=== PATIENT | male | born 1975 | race Caucasian/White ===

== ENCOUNTER 2021-02-25 08:06 | Inpatient (IN) | payer BC, OTHER ==
[~2021-02-25] VITALS: Ht 188 cm; Wt 108.0 kg
[2021-02-25] MEDS ORDERED: CEFEPIME 1 GM in IV D5W 50 ML IV ONE (09:00)
[2021-02-25] MEDS ORDERED: VANCOMYCIN 1 GM in IV D5W 250 ML IV ONE (09:00)
[2021-02-25 09:37] LABS: BASOPHILS # (AUTO) 0.1 K/uL (0.0-0.2); BASOPHILS % (AUTO) 0.6 % (0.0-2.0); EOSINOPHILS % (AUTO) 0.2 % (0.0-6.0); HEMATOCRIT 43 % (39-51); LYMPHOCYTES # (AUTO) 2.1 K/uL (0.8-4.8); LYMPHOCYTES % (AUTO) 10.9 % (20.0-44.0); MEAN CORPUSCULAR HGB CONC 33 g/dl (31.0-36.0); MEAN CORPUSCULAR VOLUME 98 fL (80-96); MONOCYTES # (AUTO) 1.9 K/uL (0.1-1.30); MONOCYTES % (AUTO) 9.9 % (2.0-12.0); NEUTROPHILS # (AUTO) 15.2 K/uL (1.8-8.9); NEUTROPHILS % (AUTO) 78.4 % (43.0-81.0); PLATELET COUNT (AUTO) 154 K/uL (150-450); RED BLOOD CELL COUNT(AUTO) 4.36 MIL/uL (4.5-6.0); WHITE BLOOD COUNT (AUTO) 19.4 K/uL (4.3-11.0)
[2021-02-25 10:17] LABS: CALCIUM, SERUM 8.1 mg/dL (8.5-10.1); CARBON DIOXIDE 19 mmol/L (21-32); CHLORIDE 93 mmol/L (98-107); CREATININE 0.9 mg/dL (0.6-1.3); GLUCOSE 130 mg/dL (74-106); POTASSIUM 4.3 mmol/L (3.5-5.1); SODIUM SERUM 129 mmol/L (136-145); UREA NITROGEN, BLOOD 11 mg/dL (7-18)
[2021-02-25 10:20] LABS: D-DIMER 15.06 mg/L(FEU (0.17-0.50)
[2021-02-25] MEDS ORDERED: ALPR0.5T8 PO (10:36)
[2021-02-25] MEDS ORDERED: IV NS 0.9% 1,000 ML IV ONE (11:00)
[2021-02-25 11:04] LABS: ALANINE AMINOTRANSFERASE 98 U/L (12-78); ALBUMIN 2.4 g/dL (3.4-5.0); ALKALINE PHOSPHATASE 198 U/L (46-116); ASPARTATE AMINOTRANSFERASE 171 U/L (15-37); BILIRUBIN,DIRECT 3.4 mg/dL (0.0-0.2); BILIRUBIN,TOTAL 4.7 mg/dL (0.2-1.0); TOTAL PROTEIN, SERUM 6.9 g/dL (6.4-8.2)
[2021-02-25] MEDS ORDERED: Z GUARD REMEDY 4 OZ OINT TP PRN (11:30)
[2021-02-25] MEDS ORDERED: MAGNESIUM HYDROXIDE 30 ML UDC PO PRN (11:30)
[2021-02-25] MEDS ORDERED: ZOLPIDEM TARTRATE 5 MG TABLET PO PRN (11:30)
[2021-02-25] MEDS ORDERED: ONDANSETRON HCL/PF 4 MG/2 ML VIAL IVP PRN (11:30)
[2021-02-25] MEDS ORDERED: ACETAMINOPHEN 325 MG TABLET PO PRN (11:30)
[2021-02-25] MEDS ORDERED: PANTOPRAZOLE 40 MG TABLET.DR PO ONE (13:52)
[2021-02-25] MEDS: PANTOPRAZOLE 40 MG TABLET.DR PO SCH (13:55)
[2021-02-25 14:54] LABS: BILIRUBIN,URINE SMALL (NEGATIVE); COLOR,URINE DARK YELLOW (YELLOW); LEUKOCYTE ESTERASE ,URINE NEGATIVE (NEGATIVE); NITRITE, URINE NEGATIVE (NEGATIVE); PROTEIN,URINE 30 mg/dl (NEGATIVE); UGLUCOSE NEGATIVE (NEGATIVE); UROBILINOGEN,URINE 0.2 EU/dL (0.2)
[2021-02-25 15:41] LABS: BACTERIA,URINE Many /HPF (None Seen); SQUAMOUS EPITHELIAL CELL,UR Rare /HPF (None Seen)
[2021-02-25] MEDS ORDERED: IOHEXOL-300 100 ML VIAL IV ONE (16:01)
[2021-02-25] MEDS ORDERED: IV NS 0.9% 250 ML IV ONE (16:01)
[2021-02-25 20:10] VITALS: BP 140/89
[2021-02-25] MEDS: LORAZEPAM 1 MG TABLET PO PRN (20:53)
[2021-02-25] MEDS: CEFEPIME 1 GM in IV D5W 50 ML IV SCH (21:52)
[2021-02-26 00:40] VITALS: BP_SYST 142; BP_SYST 156; BP_DIAS 94; BP_DIAS 96
[2021-02-26] MEDS: TEMAZEPAM 15 MG CAPSULE PO PRN (02:19)
[2021-02-26] MEDS: HYDROCODONE/APAP 5/325MG TABLET PO PRN (03:53)
[2021-02-26] MEDS: IV NS 0.9% 1,000 ML IV PRN ×2 (04:00→21:30)
[2021-02-26 04:40] VITALS: BP 140/85
[2021-02-26] MEDS: LORAZEPAM 1 MG TABLET PO PRN (04:58)
[2021-02-26 07:04] LABS: BASOPHILS # (AUTO) 0.2 K/uL (0.0-0.2); BASOPHILS % (AUTO) 0.8 % (0.0-2.0); EOSINOPHILS % (AUTO) 0.1 % (0.0-6.0); HEMATOCRIT 40 % (39-51); HEMOGLOBIN 13.1 g/dL (13.5-17.5); LYMPHOCYTES # (AUTO) 1.4 K/uL (0.8-4.8); LYMPHOCYTES % (AUTO) 7.9 % (20.0-44.0); MEAN CORPUSCULAR HGB CONC 33 g/dl (31.0-36.0); MEAN CORPUSCULAR VOLUME 97 fL (80-96); MONOCYTES # (AUTO) 1.6 K/uL (0.1-1.30); MONOCYTES % (AUTO) 8.9 % (2.0-12.0); NEUTROPHILS % (AUTO) 82.3 % (43.0-81.0); PLATELET COUNT (AUTO) 107 K/uL (150-450); RED BLOOD CELL COUNT(AUTO) 4.07 MIL/uL (4.5-6.0); WHITE BLOOD COUNT (AUTO) 18.2 K/uL (4.3-11.0)
[2021-02-26 08:00] VITALS: BP 140/83
[2021-02-26 08:07] LABS: CALCIUM, SERUM 8.3 mg/dL (8.5-10.1); CREATININE 0.8 mg/dL (0.6-1.3); MAGNESIUM 2.2 mg/dL (1.8-2.4); PHOSPHORUS 3.4 mg/dL (2.5-4.9); POTASSIUM 5.2 mmol/L (3.5-5.1)
[2021-02-26] MEDS: PANTOPRAZOLE 40 MG TABLET.DR PO SCH (08:09)
[2021-02-26] MEDS: CEFEPIME 1 GM in IV D5W 50 ML IV SCH ×2 (08:09→21:22)
[2021-02-26 08:17] LABS: THYROID STIMULATING HORMONE 4.847 uIU/mL (0.358-3.74)
[2021-02-26] MEDS: HYDROCODONE/APAP 10/325MG TABLET PO PRN ×2 (11:50→17:13)
[2021-02-26] MEDS: CHLORDIAZEPOXIDE HCL 25 MG CAPSULE PO PRN ×2 (12:24→20:35)
[2021-02-26] MEDS: THIAMINE HCL 100 MG TABLET PO SCH (12:25)
[2021-02-26] MEDS ORDERED: SODIUM POLYSTYRENE SULFONATE 15 G/60 ML BOTTLE PO ONE (12:30)
[2021-02-26 13:05] LABS: FERRITIN 685 ng/mL (8-388)
[2021-02-26 15:35] LABS: IRON, SERUM 60 ug/dl (50-175); TOTAL IRON BINDING CAPACITY 382 ug/dl (250-450)
[2021-02-26 16:00] VITALS: BP 155/85
[2021-02-26 20:00] VITALS: BP 159/98
[2021-02-27 00:05] VITALS: BP 151/98
[2021-02-27 07:27] LABS: BASOPHILS # (AUTO) 0.1 K/uL (0.0-0.2); BASOPHILS % (AUTO) 0.4 % (0.0-2.0); EOSINOPHILS % (AUTO) 0.8 % (0.0-6.0); HEMATOCRIT 39 % (39-51); HEMOGLOBIN 12.9 g/dL (13.5-17.5); LYMPHOCYTES # (AUTO) 1.5 K/uL (0.8-4.8); LYMPHOCYTES % (AUTO) 9.7 % (20.0-44.0); MEAN CORPUSCULAR HGB CONC 33 g/dl (31.0-36.0); MEAN CORPUSCULAR VOLUME 98 fL (80-96); MONOCYTES % (AUTO) 12.8 % (2.0-12.0); NEUTROPHILS # (AUTO) 11.9 K/uL (1.8-8.9); NEUTROPHILS % (AUTO) 76.3 % (43.0-81.0); PLATELET COUNT (AUTO) 98 K/uL (150-450); RED BLOOD CELL COUNT(AUTO) 3.97 MIL/uL (4.5-6.0); WHITE BLOOD COUNT (AUTO) 15.6 K/uL (4.3-11.0)
[2021-02-27 08:00] VITALS: BP 134/94
[2021-02-27] MEDS: THIAMINE HCL 100 MG TABLET PO SCH (08:45)
[2021-02-27] MEDS: CHLORDIAZEPOXIDE HCL 25 MG CAPSULE PO PRN ×2 (08:45→15:06)
[2021-02-27] MEDS: CEFEPIME 1 GM in IV D5W 50 ML IV SCH ×2 (08:45→21:19)
[2021-02-27] MEDS: PANTOPRAZOLE 40 MG TABLET.DR PO SCH (08:45)
[2021-02-27] MEDS: HYDROCODONE/APAP 10/325MG TABLET PO PRN (08:46)
[2021-02-27 16:00] VITALS: BP 145/93
[2021-02-27] MEDS: HYDROCODONE/APAP 5/325MG TABLET PO PRN (17:39)
[2021-02-27 20:00] VITALS: BP 149/98
[2021-02-28 00:36] LABS: CREATININE 0.9 mg/dL (0.6-1.3); POTASSIUM 4.7 mmol/L (3.5-5.1)
[2021-02-28 02:04] VITALS: BP 149/98
[2021-02-28] MEDS: CHLORDIAZEPOXIDE HCL 25 MG CAPSULE PO PRN ×2 (04:47→17:36)
[2021-02-28 06:49] LABS: BASOPHILS # (AUTO) 0.1 K/uL (0.0-0.2); BASOPHILS % (AUTO) 0.6 % (0.0-2.0); EOSINOPHILS % (AUTO) 1.3 % (0.0-6.0); HEMATOCRIT 39 % (39-51); HEMOGLOBIN 12.8 g/dL (13.5-17.5); LYMPHOCYTES # (AUTO) 1.7 K/uL (0.8-4.8); LYMPHOCYTES % (AUTO) 11.8 % (20.0-44.0); MEAN CORPUSCULAR HGB CONC 33 g/dl (31.0-36.0); MEAN CORPUSCULAR VOLUME 98 fL (80-96); MONOCYTES # (AUTO) 1.9 K/uL (0.1-1.30); MONOCYTES % (AUTO) 13.5 % (2.0-12.0); NEUTROPHILS # (AUTO) 10.2 K/uL (1.8-8.9); NEUTROPHILS % (AUTO) 72.8 % (43.0-81.0); PLATELET COUNT (AUTO) 99 K/uL (150-450); RED BLOOD CELL COUNT(AUTO) 3.96 MIL/uL (4.5-6.0); WHITE BLOOD COUNT (AUTO) 14.1 K/uL (4.3-11.0)
[2021-02-28 07:28] LABS: CREATININE 0.9 mg/dL (0.6-1.3); POTASSIUM 3.6 mmol/L (3.5-5.1)
[2021-02-28] MEDS: PANTOPRAZOLE 40 MG TABLET.DR PO SCH (07:54)
[2021-02-28] MEDS: HYDROCODONE/APAP 10/325MG TABLET PO PRN (07:55)
[2021-02-28 09:07] LABS: IMMUNOGLOBULIN G, SERUM 1458 mg/dL (603-1613); IMMUNOGLOBULIN M, SERUM 155 mg/dL (20-172)
[2021-02-28] MEDS: CEFEPIME 1 GM in IV D5W 50 ML IV SCH (09:34)
[2021-02-28] MEDS: THIAMINE HCL 100 MG TABLET PO SCH (09:41)
[2021-02-28 09:42] LABS: D-DIMER 11.48 mg/L(FEU (0.17-0.50)
[2021-02-28] MEDS: GUAIFENESIN/CODEINE 10 ML UDC PO PRN (09:55)
[2021-02-28 10:07] LABS: *ANA ANTI-CENTROMERE B AB <0.2 AI (0.0-0.9); *ANA ANTI-DNA(DS) AB, QN 2 IU/mL (0-9); *ANA ANTI-JO-1 <0.2 AI (0.0-0.9); *ANA ANTICHROMATIN ANTIBODY <0.2 AI (0.0-0.9); *ANA RNP ANTIBODIES 0.5 AI (0.0-0.9); *ANA SJOGREN'S ANTI-SS-A <0.2 AI (0.0-0.9); *ANA SJOGREN'S ANTI-SS-B 0.3 AI (0.0-0.9); *ANAANTI-SCLERODERMA-70 AB 0.2 AI (0.0-0.9); *ANASMITH AB <0.2 AI (0.0-0.9)
[2021-02-28 10:26] VITALS: BP 151/88
[2021-02-28 12:07] LABS: IMMUNOGLOBULIN A, SERUM 834 mg/dL (90-386)
[2021-02-28] MEDS: CEFEPIME 2 GM in IV D5W 100 ML IV SCH ×2 (12:34→21:02)
[2021-02-28] MEDS: MORPHINE SULFATE INJ 4 MG/ML DISP.SYRIN IV PRN ×2 (12:37→21:00)
[2021-02-28 13:06] LABS: *SPE A/G RATIO 0.5 (0.7-1.7); *SPE ALPHA-1-GLOBULIN 0.3 g/dL (0.0-0.4); *SPE ALPHA-2-GLOBULIN 0.5 g/dL (0.4-1.0); *SPE BETA GLOBULIN 1.4 g/dL (0.7-1.3); *SPE M-SPIKE Not Observed g/dL (Not Observed)
[2021-02-28 20:00] VITALS: BP 129/94
[2021-03-01] VITALS (10 sets, daily range): BP systolic 118–147; BP diastolic 61–87
[2021-03-01] MEDS: MORPHINE SULFATE INJ 4 MG/ML DISP.SYRIN IV PRN ×3 (02:29→20:17)
[2021-03-01] MEDS: CEFEPIME 2 GM in IV D5W 100 ML IV SCH ×2 (04:01→13:33)
[2021-03-01] MEDS: PANTOPRAZOLE 40 MG TABLET.DR PO SCH (09:57)
[2021-03-01] MEDS: THIAMINE HCL 100 MG TABLET PO SCH (09:57)
[2021-03-01] MEDS ORDERED: PHYTONADIONE INJ 10 MG/1 ML AMPUL SQ SCH (11:00)
[2021-03-01] MEDS: CHLORDIAZEPOXIDE HCL 25 MG CAPSULE PO PRN (14:33)
[2021-03-01] MEDS: ACETAMINOPHEN 325 MG TABLET PO PRN (23:24)
[2021-03-02] MEDS: GUAIFENESIN/CODEINE 10 ML UDC PO PRN ×2 (00:09→13:21)
[2021-03-02 00:15] VITALS: BP 127/94
[2021-03-02] MEDS: CEFEPIME 2 GM in IV D5W 100 ML IV SCH ×4 (00:15→21:19)
[2021-03-02] MEDS: CHLORDIAZEPOXIDE HCL 25 MG CAPSULE PO PRN ×2 (04:40→15:32)
[2021-03-02 08:00] VITALS: BP 142/90
[2021-03-02] MEDS: THIAMINE HCL 100 MG TABLET PO SCH (08:34)
[2021-03-02] MEDS: PANTOPRAZOLE 40 MG TABLET.DR PO SCH (08:34)
[2021-03-02 16:00] VITALS: BP 150/74
[2021-03-02] MEDS ORDERED: diphenhydrAMINE HCL 50 MG/ML VIAL IV ONE (18:30)
[2021-03-02] MEDS ORDERED: ACETAMINOPHEN 325 MG TABLET PO ONE (18:30)
[2021-03-02 20:00] VITALS: BP 130/74
[2021-03-02] MEDS: MORPHINE SULFATE INJ 4 MG/ML DISP.SYRIN IV PRN (21:20)
[2021-03-03] VITALS (7 sets, daily range): BP systolic 125–147; BP diastolic 76–84
[2021-03-03] MEDS: CEFEPIME 2 GM in IV D5W 100 ML IV SCH ×3 (05:13→20:30)
[2021-03-03] MEDS: CHLORDIAZEPOXIDE HCL 25 MG CAPSULE PO PRN (05:38)
[2021-03-03 07:56] LABS: BASOPHILS # (AUTO) 0.1 K/uL (0.0-0.2); BASOPHILS % (AUTO) 0.6 % (0.0-2.0); EOSINOPHILS % (AUTO) 1.8 % (0.0-6.0); HEMATOCRIT 36 % (39-51); HEMOGLOBIN 12.3 g/dL (13.5-17.5); LYMPHOCYTES # (AUTO) 1.4 K/uL (0.8-4.8); LYMPHOCYTES % (AUTO) 9.5 % (20.0-44.0); MEAN CORPUSCULAR HGB CONC 34 g/dl (31.0-36.0); MEAN CORPUSCULAR VOLUME 97 fL (80-96); NEUTROPHILS # (AUTO) 10.6 K/uL (1.8-8.9); NEUTROPHILS % (AUTO) 74.1 % (43.0-81.0); PLATELET COUNT (AUTO) 99 K/uL (150-450); RED BLOOD CELL COUNT(AUTO) 3.74 MIL/uL (4.5-6.0); WHITE BLOOD COUNT (AUTO) 14.4 K/uL (4.3-11.0)
[2021-03-03 08:07] LABS: CALCIUM, SERUM 7.9 mg/dL (8.5-10.1); CREATININE 0.8 mg/dL (0.6-1.3); POTASSIUM 3.3 mmol/L (3.5-5.1)
[2021-03-03] MEDS: PANTOPRAZOLE 40 MG TABLET.DR PO SCH (08:18)
[2021-03-03] MEDS: THIAMINE HCL 100 MG TABLET PO SCH (08:18)
[2021-03-03] MEDS: MORPHINE SULFATE INJ 4 MG/ML DISP.SYRIN IV PRN (08:19)
[2021-03-03] MEDS ORDERED: POTASSIUM CHLORIDE 20 MEQ TAB.PRT.SR PO SCH (10:30)
[2021-03-03] MEDS: GUAIFENESIN/CODEINE 10 ML UDC PO PRN (11:25)
[2021-03-04] MEDS: CEFEPIME 2 GM in IV D5W 100 ML IV SCH ×2 (05:25→13:45)
[2021-03-04] MEDS: CHLORDIAZEPOXIDE HCL 25 MG CAPSULE PO PRN ×3 (06:15→23:55)
[2021-03-04] MEDS: MORPHINE SULFATE INJ 4 MG/ML DISP.SYRIN IV PRN ×3 (06:15→20:04)
[2021-03-04 08:00] VITALS: BP 140/71
[2021-03-04 08:11] LABS: CALCIUM, SERUM 7.6 mg/dL (8.5-10.1); CREATININE 0.7 mg/dL (0.6-1.3); POTASSIUM 3.5 mmol/L (3.5-5.1)
[2021-03-04] MEDS: THIAMINE HCL 100 MG TABLET PO SCH (09:07)
[2021-03-04] MEDS: PANTOPRAZOLE 40 MG TABLET.DR PO SCH (09:07)
[2021-03-04 16:00] VITALS: BP 143/61
[2021-03-04] MEDS: BENZONATATE 100 MG CAPSULE PO SCH ×2 (17:53→20:04)
[2021-03-04 20:00] VITALS: BP 123/71
[2021-03-05] MEDS: BENZONATATE 100 MG CAPSULE PO SCH ×3 (05:00→21:19)
[2021-03-05] MEDS: MORPHINE SULFATE INJ 4 MG/ML DISP.SYRIN IV PRN ×3 (06:47→18:13)
[2021-03-05 06:55] LABS: BASOPHILS # (AUTO) 0.1 K/uL (0.0-0.2); BASOPHILS % (AUTO) 0.9 % (0.0-2.0); HEMATOCRIT 35 % (39-51); HEMOGLOBIN 11.8 g/dL (13.5-17.5); LYMPHOCYTES # (AUTO) 1.4 K/uL (0.8-4.8); LYMPHOCYTES % (AUTO) 12.4 % (20.0-44.0); MEAN CORPUSCULAR HGB CONC 33 g/dl (31.0-36.0); MEAN CORPUSCULAR VOLUME 98 fL (80-96); MONOCYTES # (AUTO) 1.5 K/uL (0.1-1.30); MONOCYTES % (AUTO) 13.3 % (2.0-12.0); NEUTROPHILS # (AUTO) 8.2 K/uL (1.8-8.9); NEUTROPHILS % (AUTO) 71.4 % (43.0-81.0); PLATELET COUNT (AUTO) 108 K/uL (150-450); RED BLOOD CELL COUNT(AUTO) 3.61 MIL/uL (4.5-6.0); WHITE BLOOD COUNT (AUTO) 11.5 K/uL (4.3-11.0)
[2021-03-05 07:28] LABS: ALBUMIN 1.7 g/dL (3.4-5.0); BILIRUBIN,DIRECT 3.1 mg/dL (0.0-0.2); BILIRUBIN,TOTAL 4.6 mg/dL (0.2-1.0); TOTAL PROTEIN, SERUM 5.6 g/dL (6.4-8.2)
[2021-03-05 08:19] VITALS: BP 141/80
[2021-03-05] MEDS: THIAMINE HCL 100 MG TABLET PO SCH (08:39)
[2021-03-05] MEDS: PANTOPRAZOLE 40 MG TABLET.DR PO SCH (08:39)
[2021-03-05 16:00] VITALS: BP 129/70
[2021-03-05] MEDS: CHLORDIAZEPOXIDE HCL 25 MG CAPSULE PO PRN (18:13)
[2021-03-05 20:00] VITALS: BP 120/65
[2021-03-05 23:28] VITALS: BP 120/65
[2021-03-06] VITALS (32 sets, daily range): BP systolic 98–130; BP diastolic 59–83
[2021-03-06] MEDS: BENZONATATE 100 MG CAPSULE PO SCH ×3 (05:05→20:38)
[2021-03-06] MEDS: MORPHINE SULFATE INJ 4 MG/ML DISP.SYRIN IV PRN (05:48)
[2021-03-06 07:07] LABS: ALBUMIN 1.8 g/dL (3.4-5.0); BILIRUBIN,DIRECT 3.5 mg/dL (0.0-0.2); BILIRUBIN,TOTAL 5.5 mg/dL (0.2-1.0); CREATININE 0.8 mg/dL (0.6-1.3); POTASSIUM 3.6 mmol/L (3.5-5.1); TOTAL PROTEIN, SERUM 6.3 g/dL (6.4-8.2)
[2021-03-06 07:09] LABS: BASOPHILS # (AUTO) 0.1 K/uL (0.0-0.2); BASOPHILS % (AUTO) 0.9 % (0.0-2.0); EOSINOPHILS % (AUTO) 1.2 % (0.0-6.0); HEMATOCRIT 38 % (39-51); HEMOGLOBIN 12.8 g/dL (13.5-17.5); LYMPHOCYTES # (AUTO) 1.8 K/uL (0.8-4.8); LYMPHOCYTES % (AUTO) 12.1 % (20.0-44.0); MEAN CORPUSCULAR HGB CONC 34 g/dl (31.0-36.0); MEAN CORPUSCULAR VOLUME 97 fL (80-96); MONOCYTES # (AUTO) 1.8 K/uL (0.1-1.30); MONOCYTES % (AUTO) 11.6 % (2.0-12.0); NEUTROPHILS # (AUTO) 11.4 K/uL (1.8-8.9); NEUTROPHILS % (AUTO) 74.2 % (43.0-81.0); PLATELET COUNT (AUTO) 153 K/uL (150-450); RED BLOOD CELL COUNT(AUTO) 3.96 MIL/uL (4.5-6.0); WHITE BLOOD COUNT (AUTO) 15.3 K/uL (4.3-11.0)
[2021-03-06] MEDS: PANTOPRAZOLE 40 MG TABLET.DR PO SCH (08:04)
[2021-03-06] MEDS: THIAMINE HCL 100 MG TABLET PO SCH (08:04)
[2021-03-06] MEDS ORDERED: GLYCOPYRROLATE 0.2 MG/ML VIAL ONE (09:29)
[2021-03-06] MEDS ORDERED: FENTANYL PF 250MCG/5ML AMPUL ONE (09:29)
[2021-03-06] MEDS ORDERED: ROCURONIUM BROMIDE 50 MG/5 ML ONE (09:30)
[2021-03-06] MEDS ORDERED: MIDAZOLAM HCL 2 MG/2ML VIAL ONE (09:30)
[2021-03-06] MEDS ORDERED: DEXAMETHASONE SOD PHOSPHATE 4 MG/ML VIAL ONE (09:34)
[2021-03-06] MEDS ORDERED: ALBUTEROL 17GM INHALER ONE (10:17)
[2021-03-06] MEDS ORDERED: SEVOFLURANE 250 ML BOTTLE IH ONE (11:30)
[2021-03-06] MEDS ORDERED: LIDOCAINE 1% INJ 50 ML MDV IJ ONE (11:33)
[2021-03-06] MEDS: HYDROMORPHONE 1 MG/1 ML DISP.SYRIN IV PRN ×2 (13:46→17:46)
[2021-03-06] MEDS ORDERED: diphenhydrAMINE HCL 50 MG/ML VIAL IV ONE ×2 (14:00→20:30)
[2021-03-06 14:51] LABS: BASOPHILS # (AUTO) 0.1 K/uL (0.0-0.2); BASOPHILS % (AUTO) 0.3 % (0.0-2.0); EOSINOPHILS % (AUTO) 0.2 % (0.0-6.0); HEMATOCRIT 38 % (39-51); HEMOGLOBIN 12.5 g/dL (13.5-17.5); LYMPHOCYTES % (AUTO) 5.4 % (20.0-44.0); MEAN CORPUSCULAR HGB CONC 33 g/dl (31.0-36.0); MEAN CORPUSCULAR VOLUME 98 fL (80-96); MONOCYTES # (AUTO) 0.4 K/uL (0.1-1.30); MONOCYTES % (AUTO) 2.2 % (2.0-12.0); NEUTROPHILS # (AUTO) 17.8 K/uL (1.8-8.9); NEUTROPHILS % (AUTO) 91.9 % (43.0-81.0); PLATELET COUNT (AUTO) 135 K/uL (150-450); RED BLOOD CELL COUNT(AUTO) 3.84 MIL/uL (4.5-6.0); WHITE BLOOD COUNT (AUTO) 19.4 K/uL (4.3-11.0)
[2021-03-06 15:19] LABS: ALBUMIN 1.6 g/dL (3.4-5.0); BILIRUBIN,TOTAL 3.3 mg/dL (0.2-1.0); CALCIUM, SERUM 7.7 mg/dL (8.5-10.1); CREATININE 0.8 mg/dL (0.6-1.3); POTASSIUM 3.9 mmol/L (3.5-5.1); TOTAL PROTEIN, SERUM 5.6 g/dL (6.4-8.2)
[2021-03-06] MEDS ORDERED: ACETAMINOPHEN 325 MG TABLET PO ONE (20:30)
[2021-03-06] MEDS: HYDROCODONE/APAP 5/325MG TABLET PO PRN (21:21)
[2021-03-07] VITALS (24 sets, daily range): BP systolic 97–142; BP diastolic 55–90
[2021-03-07] MEDS: GUAIFENESIN/CODEINE 10 ML UDC PO PRN (00:20)
[2021-03-07] MEDS: IV NS 0.9% 1,000 ML IV PRN ×2 (03:57→22:33)
[2021-03-07] MEDS: HYDROMORPHONE 1 MG/1 ML DISP.SYRIN IV PRN ×3 (04:11→22:28)
[2021-03-07] MEDS: BENZONATATE 100 MG CAPSULE PO SCH ×3 (05:06→21:17)
[2021-03-07 06:02] LABS: CALCIUM, SERUM 7.6 mg/dL (8.5-10.1); CREATININE 1.7 mg/dL (0.6-1.3); POTASSIUM 4.9 mmol/L (3.5-5.1)
[2021-03-07 07:29] LABS: BASOPHILS # (AUTO) 0.1 K/uL (0.0-0.2); BASOPHILS % (AUTO) 0.6 % (0.0-2.0); HEMATOCRIT 32 % (39-51); HEMOGLOBIN 10.6 g/dL (13.5-17.5); LYMPHOCYTES # (AUTO) 1.7 K/uL (0.8-4.8); LYMPHOCYTES % (AUTO) 8.6 % (20.0-44.0); MEAN CORPUSCULAR HGB CONC 33 g/dl (31.0-36.0); MEAN CORPUSCULAR VOLUME 99 fL (80-96); MONOCYTES # (AUTO) 1.2 K/uL (0.1-1.30); NEUTROPHILS # (AUTO) 16.6 K/uL (1.8-8.9); NEUTROPHILS % (AUTO) 84.8 % (43.0-81.0); PLATELET COUNT (AUTO) 145 K/uL (150-450); RED BLOOD CELL COUNT(AUTO) 3.25 MIL/uL (4.5-6.0); WHITE BLOOD COUNT (AUTO) 19.6 K/uL (4.3-11.0)
[2021-03-07] MEDS: PANTOPRAZOLE 40 MG TABLET.DR PO SCH (08:08)
[2021-03-07] MEDS: THIAMINE HCL 100 MG TABLET PO SCH (08:08)
[2021-03-07] MEDS: HYDROCODONE/APAP 5/325MG TABLET PO PRN ×2 (12:24→17:26)
[2021-03-08] VITALS (18 sets, daily range): BP systolic 105–151; BP diastolic 60–98
[2021-03-08] MEDS: TEMAZEPAM 15 MG CAPSULE PO PRN (00:26)
[2021-03-08] MEDS: HYDROMORPHONE 1 MG/1 ML DISP.SYRIN IV PRN ×6 (01:36→21:33)
[2021-03-08] MEDS: BENZONATATE 100 MG CAPSULE PO SCH ×3 (04:57→21:32)
[2021-03-08 05:38] LABS: BASOPHILS % (AUTO) 0.1 % (0.0-2.0); HEMATOCRIT 32 % (39-51); HEMOGLOBIN 10.7 g/dL (13.5-17.5); LYMPHOCYTES # (AUTO) 1.7 K/uL (0.8-4.8); LYMPHOCYTES % (AUTO) 6.9 % (20.0-44.0); MEAN CORPUSCULAR HGB CONC 33 g/dl (31.0-36.0); MEAN CORPUSCULAR VOLUME 98 fL (80-96); MONOCYTES # (AUTO) 1.9 K/uL (0.1-1.30); MONOCYTES % (AUTO) 7.8 % (2.0-12.0); NEUTROPHILS # (AUTO) 20.8 K/uL (1.8-8.9); NEUTROPHILS % (AUTO) 85.2 % (43.0-81.0); PLATELET COUNT (AUTO) 161 K/uL (150-450); RED BLOOD CELL COUNT(AUTO) 3.28 MIL/uL (4.5-6.0); WHITE BLOOD COUNT (AUTO) 24.4 K/uL (4.3-11.0)
[2021-03-08 05:44] LABS: CALCIUM, SERUM 7.6 mg/dL (8.5-10.1); CREATININE 1.9 mg/dL (0.6-1.3); POTASSIUM 4.1 mmol/L (3.5-5.1)
[2021-03-08] MEDS: PANTOPRAZOLE 40 MG TABLET.DR PO SCH (07:51)
[2021-03-08] MEDS: THIAMINE HCL 100 MG TABLET PO SCH (08:09)
[2021-03-08] MEDS: MAG HYDROX/AL HYDROX/SIMETH 30 ML UDC PO PRN ×2 (10:42→21:42)
[2021-03-08] MEDS: HYDROCODONE/APAP 5/325MG TABLET PO PRN (10:49)
[2021-03-08] MEDS: CHLORDIAZEPOXIDE HCL 25 MG CAPSULE PO PRN (18:27)
[2021-03-08] MEDS ORDERED: diphenhydrAMINE HCL 50 MG/ML VIAL IV ONE (20:00)
[2021-03-08] MEDS ORDERED: ACETAMINOPHEN 325 MG TABLET PO ONE (20:00)
[2021-03-09] VITALS (7 sets, daily range): BP systolic 117–134; BP diastolic 65–78
[2021-03-09] MEDS: HYDROMORPHONE 1 MG/1 ML DISP.SYRIN IV PRN ×3 (00:20→12:53)
[2021-03-09] MEDS: BENZONATATE 100 MG CAPSULE PO SCH ×3 (04:58→20:16)
[2021-03-09 07:50] LABS: ALBUMIN 1.9 g/dL (3.4-5.0); BILIRUBIN,TOTAL 2.8 mg/dL (0.2-1.0); CALCIUM, SERUM 7.9 mg/dL (8.5-10.1); CREATININE 1.6 mg/dL (0.6-1.3); TOTAL PROTEIN, SERUM 6.1 g/dL (6.4-8.2)
[2021-03-09] MEDS: PANTOPRAZOLE 40 MG TABLET.DR PO SCH (08:04)
[2021-03-09] MEDS: THIAMINE HCL 100 MG TABLET PO SCH (08:04)
[2021-03-09] MEDS: HYDROCODONE/APAP 5/325MG TABLET PO PRN ×2 (08:05→17:31)
[2021-03-09 08:18] LABS: BASOPHILS % (AUTO) 0.3 % (0.0-2.0); EOSINOPHILS % (AUTO) 1.8 % (0.0-6.0); HEMATOCRIT 35 % (39-51); HEMOGLOBIN 11.2 g/dL (13.5-17.5); LYMPHOCYTES # (AUTO) 2.1 K/uL (0.8-4.8); LYMPHOCYTES % (AUTO) 14.1 % (20.0-44.0); MEAN CORPUSCULAR HGB CONC 33 g/dl (31.0-36.0); MEAN CORPUSCULAR VOLUME 99 fL (80-96); MONOCYTES # (AUTO) 1.8 K/uL (0.1-1.30); MONOCYTES % (AUTO) 11.6 % (2.0-12.0); NEUTROPHILS % (AUTO) 72.2 % (43.0-81.0); PLATELET COUNT (AUTO) 135 K/uL (150-450); RED BLOOD CELL COUNT(AUTO) 3.49 MIL/uL (4.5-6.0); WHITE BLOOD COUNT (AUTO) 15.2 K/uL (4.3-11.0)
[2021-03-09 08:55] LABS: D-DIMER 17.99 mg/L(FEU (0.17-0.50)
[2021-03-09] MEDS ORDERED: PHYTONADIONE INJ 10 MG/1 ML AMPUL SQ SCH (13:00)
[2021-03-10] MEDS: HYDROMORPHONE 1 MG/1 ML DISP.SYRIN IV PRN ×3 (00:13→18:22)
[2021-03-10] MEDS: BENZONATATE 100 MG CAPSULE PO SCH ×3 (04:13→22:13)
[2021-03-10 08:23] VITALS: BP 130/74
[2021-03-10] MEDS: PANTOPRAZOLE 40 MG TABLET.DR PO SCH (08:30)
[2021-03-10] MEDS: THIAMINE HCL 100 MG TABLET PO SCH (08:30)
[2021-03-10 10:54] LABS: BASOPHILS # (AUTO) 0.1 K/uL (0.0-0.2); BASOPHILS % (AUTO) 0.6 % (0.0-2.0); EOSINOPHILS % (AUTO) 2.4 % (0.0-6.0); HEMATOCRIT 32 % (39-51); HEMOGLOBIN 10.5 g/dL (13.5-17.5); LYMPHOCYTES # (AUTO) 1.8 K/uL (0.8-4.8); LYMPHOCYTES % (AUTO) 13.1 % (20.0-44.0); MEAN CORPUSCULAR HGB CONC 33 g/dl (31.0-36.0); MEAN CORPUSCULAR VOLUME 98 fL (80-96); MONOCYTES # (AUTO) 1.4 K/uL (0.1-1.30); MONOCYTES % (AUTO) 10.3 % (2.0-12.0); NEUTROPHILS # (AUTO) 10.3 K/uL (1.8-8.9); NEUTROPHILS % (AUTO) 73.6 % (43.0-81.0); PLATELET COUNT (AUTO) 105 K/uL (150-450); RED BLOOD CELL COUNT(AUTO) 3.27 MIL/uL (4.5-6.0)
[2021-03-10] MEDS: CHLORDIAZEPOXIDE HCL 25 MG CAPSULE PO PRN (12:14)
[2021-03-10 16:40] VITALS: BP 130/71
[2021-03-10 20:00] VITALS: BP 113/66
[2021-03-11] MEDS: HYDROMORPHONE 1 MG/1 ML DISP.SYRIN IV PRN ×4 (02:01→21:57)
[2021-03-11] MEDS ORDERED: HYDROCODONE/APAP 5/325MG TABLET ONE (05:20)
[2021-03-11] MEDS: BENZONATATE 100 MG CAPSULE PO SCH ×3 (05:22→21:57)
[2021-03-11] MEDS ORDERED: BENZONATATE 100 MG CAPSULE PO ONE (05:22)
[2021-03-11] MEDS: HYDROCODONE/APAP 5/325MG TABLET PO PRN ×3 (05:23→18:47)
[2021-03-11 07:34] LABS: BASOPHILS # (AUTO) 0.1 K/uL (0.0-0.2); BASOPHILS % (AUTO) 0.6 % (0.0-2.0); EOSINOPHILS % (AUTO) 1.8 % (0.0-6.0); HEMATOCRIT 32 % (39-51); HEMOGLOBIN 10.7 g/dL (13.5-17.5); LYMPHOCYTES # (AUTO) 1.8 K/uL (0.8-4.8); LYMPHOCYTES % (AUTO) 10.9 % (20.0-44.0); MEAN CORPUSCULAR HGB CONC 33 g/dl (31.0-36.0); MEAN CORPUSCULAR VOLUME 98 fL (80-96); MONOCYTES # (AUTO) 1.8 K/uL (0.1-1.30); MONOCYTES % (AUTO) 10.9 % (2.0-12.0); NEUTROPHILS # (AUTO) 12.2 K/uL (1.8-8.9); NEUTROPHILS % (AUTO) 75.8 % (43.0-81.0); PLATELET COUNT (AUTO) 115 K/uL (150-450); WHITE BLOOD COUNT (AUTO) 16.1 K/uL (4.3-11.0)
[2021-03-11 08:00] VITALS: BP 130/68
[2021-03-11 08:08] LABS: ALBUMIN 1.7 g/dL (3.4-5.0); BILIRUBIN,TOTAL 3.3 mg/dL (0.2-1.0); CALCIUM, SERUM 8.3 mg/dL (8.5-10.1); CREATININE 1.4 mg/dL (0.6-1.3); POTASSIUM 3.9 mmol/L (3.5-5.1); TOTAL PROTEIN, SERUM 5.6 g/dL (6.4-8.2)
[2021-03-11] MEDS: THIAMINE HCL 100 MG TABLET PO SCH (09:14)
[2021-03-11] MEDS: PANTOPRAZOLE 40 MG TABLET.DR PO SCH (09:14)
[2021-03-11 09:30] LABS: D-DIMER 11.53 mg/L(FEU (0.17-0.50)
[2021-03-11 15:36] VITALS: BP 130/68
[2021-03-11 15:54] VITALS: BP 140/88
[2021-03-11] MEDS: CHLORDIAZEPOXIDE HCL 25 MG CAPSULE PO PRN (16:44)
[2021-03-11 16:52] VITALS: BP 140/78
[2021-03-11] MEDS ORDERED: CELLULOSE,OXIDIZED 1 EACH EACH MC ONE (17:00)
[2021-03-11 20:00] VITALS: BP 123/73
[2021-03-12] MEDS: HYDROCODONE/APAP 5/325MG TABLET PO PRN ×2 (00:57→21:53)
[2021-03-12] MEDS: BENZONATATE 100 MG CAPSULE PO SCH ×3 (05:45→20:49)
[2021-03-12] MEDS: HYDROMORPHONE 1 MG/1 ML DISP.SYRIN IV PRN ×4 (05:59→23:26)
[2021-03-12 07:22] LABS: BASOPHILS # (AUTO) 0.1 K/uL (0.0-0.2); BASOPHILS % (AUTO) 0.6 % (0.0-2.0); EOSINOPHILS % (AUTO) 2.8 % (0.0-6.0); HEMATOCRIT 34 % (39-51); LYMPHOCYTES # (AUTO) 2.1 K/uL (0.8-4.8); LYMPHOCYTES % (AUTO) 12.5 % (20.0-44.0); MEAN CORPUSCULAR HGB CONC 33 g/dl (31.0-36.0); MEAN CORPUSCULAR VOLUME 98 fL (80-96); MONOCYTES # (AUTO) 1.7 K/uL (0.1-1.30); MONOCYTES % (AUTO) 10.4 % (2.0-12.0); NEUTROPHILS # (AUTO) 12.4 K/uL (1.8-8.9); NEUTROPHILS % (AUTO) 73.7 % (43.0-81.0); PLATELET COUNT (AUTO) 114 K/uL (150-450); RED BLOOD CELL COUNT(AUTO) 3.41 MIL/uL (4.5-6.0); WHITE BLOOD COUNT (AUTO) 16.8 K/uL (4.3-11.0)
[2021-03-12 07:44] LABS: ALBUMIN 1.7 g/dL (3.4-5.0); BILIRUBIN,TOTAL 3.2 mg/dL (0.2-1.0); CALCIUM, SERUM 7.9 mg/dL (8.5-10.1); CREATININE 1.4 mg/dL (0.6-1.3); POTASSIUM 3.8 mmol/L (3.5-5.1); TOTAL PROTEIN, SERUM 5.9 g/dL (6.4-8.2)
[2021-03-12 08:00] VITALS: BP 125/82
[2021-03-12] MEDS: THIAMINE HCL 100 MG TABLET PO SCH (08:02)
[2021-03-12] MEDS: PANTOPRAZOLE 40 MG TABLET.DR PO SCH (08:02)
[2021-03-12] MEDS ORDERED: diphenhydrAMINE HCL 50 MG/ML VIAL IV ONE ×2 (12:00→18:00)
[2021-03-12 16:00] VITALS: BP 126/83
[2021-03-12 17:57] VITALS: BP 126/80
[2021-03-12 18:26] VITALS: BP 153/84
[2021-03-12 20:00] VITALS: BP 126/68
[2021-03-12] MEDS: FUROSEMIDE 20 MG TABLET PO SCH (21:44)
[2021-03-13] MEDS: HYDROMORPHONE 1 MG/1 ML DISP.SYRIN IV PRN ×5 (03:12→22:48)
[2021-03-13] MEDS: BENZONATATE 100 MG CAPSULE PO SCH ×3 (06:06→21:42)
[2021-03-13] MEDS ORDERED: LIDOCAINE 1% INJ 50 ML MDV IJ ONE (07:00)
[2021-03-13] MEDS: PANTOPRAZOLE 40 MG TABLET.DR PO SCH (07:36)
[2021-03-13 07:39] LABS: BASOPHILS # (AUTO) 0.1 K/uL (0.0-0.2); BASOPHILS % (AUTO) 0.5 % (0.0-2.0); EOSINOPHILS % (AUTO) 2.8 % (0.0-6.0); HEMATOCRIT 31 % (39-51); HEMOGLOBIN 10.2 g/dL (13.5-17.5); LYMPHOCYTES % (AUTO) 14.1 % (20.0-44.0); MEAN CORPUSCULAR HGB CONC 34 g/dl (31.0-36.0); MEAN CORPUSCULAR VOLUME 98 fL (80-96); MONOCYTES # (AUTO) 1.8 K/uL (0.1-1.30); MONOCYTES % (AUTO) 12.7 % (2.0-12.0); NEUTROPHILS # (AUTO) 9.9 K/uL (1.8-8.9); NEUTROPHILS % (AUTO) 69.9 % (43.0-81.0); PLATELET COUNT (AUTO) 104 K/uL (150-450); RED BLOOD CELL COUNT(AUTO) 3.11 MIL/uL (4.5-6.0); WHITE BLOOD COUNT (AUTO) 14.1 K/uL (4.3-11.0)
[2021-03-13 08:00] VITALS: BP 125/72
[2021-03-13 08:10] LABS: ALBUMIN 1.7 g/dL (3.4-5.0); CALCIUM, SERUM 7.7 mg/dL (8.5-10.1); CREATININE 1.4 mg/dL (0.6-1.3); POTASSIUM 3.7 mmol/L (3.5-5.1); TOTAL PROTEIN, SERUM 5.6 g/dL (6.4-8.2)
[2021-03-13] MEDS: FUROSEMIDE 20 MG TABLET PO SCH ×2 (08:38→16:28)
[2021-03-13] MEDS: THIAMINE HCL 100 MG TABLET PO SCH (08:38)
[2021-03-13] MEDS: ACETAMINOPHEN 325 MG TABLET PO PRN (11:30)
[2021-03-13 12:00] VITALS: BP 124/78
[2021-03-13 12:20] VITALS: BP 128/73
[2021-03-13] MEDS: HYDROCODONE/APAP 5/325MG TABLET PO PRN (19:59)
[2021-03-13 20:00] VITALS: BP 135/82
[2021-03-13 20:21] LABS: BASOPHILS # (AUTO) 0.1 K/uL (0.0-0.2); BASOPHILS % (AUTO) 0.7 % (0.0-2.0); EOSINOPHILS % (AUTO) 3.3 % (0.0-6.0); HEMATOCRIT 29 % (39-51); HEMOGLOBIN 9.7 g/dL (13.5-17.5); LYMPHOCYTES % (AUTO) 15.8 % (20.0-44.0); MEAN CORPUSCULAR HGB CONC 34 g/dl (31.0-36.0); MEAN CORPUSCULAR VOLUME 98 fL (80-96); MONOCYTES # (AUTO) 1.7 K/uL (0.1-1.30); MONOCYTES % (AUTO) 13.7 % (2.0-12.0); NEUTROPHILS # (AUTO) 8.3 K/uL (1.8-8.9); NEUTROPHILS % (AUTO) 66.5 % (43.0-81.0); PLATELET COUNT (AUTO) 103 K/uL (150-450); RED BLOOD CELL COUNT(AUTO) 2.95 MIL/uL (4.5-6.0); WHITE BLOOD COUNT (AUTO) 12.4 K/uL (4.3-11.0)
[2021-03-14] MEDS: BENZONATATE 100 MG CAPSULE PO SCH ×3 (04:20→20:58)
[2021-03-14] MEDS: HYDROMORPHONE 1 MG/1 ML DISP.SYRIN IV PRN ×4 (05:40→21:00)
[2021-03-14 07:16] LABS: BASOPHILS # (AUTO) 0.1 K/uL (0.0-0.2); BASOPHILS % (AUTO) 0.7 % (0.0-2.0); HEMATOCRIT 27 % (39-51); HEMOGLOBIN 9.2 g/dL (13.5-17.5); LYMPHOCYTES # (AUTO) 1.8 K/uL (0.8-4.8); LYMPHOCYTES % (AUTO) 15.4 % (20.0-44.0); MEAN CORPUSCULAR HGB CONC 34 g/dl (31.0-36.0); MEAN CORPUSCULAR VOLUME 97 fL (80-96); MONOCYTES # (AUTO) 1.5 K/uL (0.1-1.30); MONOCYTES % (AUTO) 12.8 % (2.0-12.0); NEUTROPHILS # (AUTO) 7.8 K/uL (1.8-8.9); NEUTROPHILS % (AUTO) 68.1 % (43.0-81.0); PLATELET COUNT (AUTO) 90 K/uL (150-450); RED BLOOD CELL COUNT(AUTO) 2.82 MIL/uL (4.5-6.0); WHITE BLOOD COUNT (AUTO) 11.5 K/uL (4.3-11.0)
[2021-03-14 07:38] LABS: ALBUMIN 1.6 g/dL (3.4-5.0); BILIRUBIN,TOTAL 2.5 mg/dL (0.2-1.0); CALCIUM, SERUM 7.5 mg/dL (8.5-10.1); CREATININE 1.3 mg/dL (0.6-1.3); POTASSIUM 3.5 mmol/L (3.5-5.1); TOTAL PROTEIN, SERUM 5.3 g/dL (6.4-8.2)
[2021-03-14] MEDS: PANTOPRAZOLE 40 MG TABLET.DR PO SCH (08:08)
[2021-03-14] MEDS: THIAMINE HCL 100 MG TABLET PO SCH (08:12)
[2021-03-14] MEDS: FUROSEMIDE 20 MG TABLET PO SCH ×2 (08:12→17:12)
[2021-03-14] MEDS ORDERED: SPIRONOLACTONE 25 MG TABLET PO SCH (18:00)
[2021-03-14] MEDS ORDERED: PROPRANOLOL HCL 10 MG TABLET PO SCH (18:00)
[2021-03-14 20:00] VITALS: BP 130/83
[2021-03-14] MEDS: SPIRONOLACTONE 25 MG TABLET PO SCH (20:57)
[2021-03-14] MEDS: PROPRANOLOL HCL 10 MG TABLET PO SCH (20:58)
[2021-03-14] MEDS: CHLORDIAZEPOXIDE HCL 25 MG CAPSULE PO PRN (23:17)
[2021-03-15] MEDS: GUAIFENESIN/CODEINE 10 ML UDC PO PRN (01:57)
[2021-03-15] MEDS: HYDROMORPHONE 1 MG/1 ML DISP.SYRIN IV PRN ×5 (01:57→21:34)
[2021-03-15] MEDS: BENZONATATE 100 MG CAPSULE PO SCH ×3 (04:40→21:33)
[2021-03-15] MEDS: HYDROCODONE/APAP 5/325MG TABLET PO PRN ×2 (04:40→13:27)
[2021-03-15 07:14] LABS: BASOPHILS # (AUTO) 0.1 K/uL (0.0-0.2); BASOPHILS % (AUTO) 0.8 % (0.0-2.0); EOSINOPHILS % (AUTO) 2.4 % (0.0-6.0); HEMATOCRIT 29 % (39-51); HEMOGLOBIN 9.8 g/dL (13.5-17.5); LYMPHOCYTES # (AUTO) 2.4 K/uL (0.8-4.8); LYMPHOCYTES % (AUTO) 16.4 % (20.0-44.0); MEAN CORPUSCULAR HGB CONC 34 g/dl (31.0-36.0); MEAN CORPUSCULAR VOLUME 98 fL (80-96); MONOCYTES % (AUTO) 13.6 % (2.0-12.0); NEUTROPHILS # (AUTO) 9.7 K/uL (1.8-8.9); NEUTROPHILS % (AUTO) 66.8 % (43.0-81.0); PLATELET COUNT (AUTO) 115 K/uL (150-450); RED BLOOD CELL COUNT(AUTO) 2.97 MIL/uL (4.5-6.0); WHITE BLOOD COUNT (AUTO) 14.4 K/uL (4.3-11.0)
[2021-03-15 07:53] LABS: ALBUMIN 1.5 g/dL (3.4-5.0); BILIRUBIN,TOTAL 2.8 mg/dL (0.2-1.0); CALCIUM, SERUM 7.4 mg/dL (8.5-10.1); CREATININE 1.4 mg/dL (0.6-1.3); MAGNESIUM 1.3 mg/dL (1.8-2.4); PHOSPHORUS 3.5 mg/dL (2.5-4.9); POTASSIUM 3.6 mmol/L (3.5-5.1); TOTAL PROTEIN, SERUM 5.4 g/dL (6.4-8.2)
[2021-03-15] MEDS: PANTOPRAZOLE 40 MG TABLET.DR PO SCH (08:29)
[2021-03-15] MEDS: THIAMINE HCL 100 MG TABLET PO SCH (08:35)
[2021-03-15] MEDS: PROPRANOLOL HCL 10 MG TABLET PO SCH ×2 (08:43→21:33)
[2021-03-15] MEDS: SPIRONOLACTONE 25 MG TABLET PO SCH (08:50)
[2021-03-15] MEDS: FUROSEMIDE 20 MG TABLET PO SCH ×2 (08:50→17:02)
[2021-03-15 08:51] VITALS: BP 109/69
[2021-03-15] MEDS ORDERED: MAGNESIUM OXIDE 400 MG TABLET PO ONE (10:00)
[2021-03-15] MEDS: CHLORDIAZEPOXIDE HCL 25 MG CAPSULE PO PRN (13:25)
[2021-03-15 16:08] VITALS: BP 137/74
[2021-03-15 20:00] VITALS: BP 108/69
[2021-03-16] MEDS: HYDROMORPHONE 1 MG/1 ML DISP.SYRIN IV PRN ×4 (03:54→22:19)
[2021-03-16] MEDS: BENZONATATE 100 MG CAPSULE PO SCH ×3 (04:54→21:16)
[2021-03-16] MEDS: CHLORDIAZEPOXIDE HCL 25 MG CAPSULE PO PRN (07:26)
[2021-03-16] MEDS: PANTOPRAZOLE 40 MG TABLET.DR PO SCH (07:26)
[2021-03-16 08:16] LABS: CALCIUM, SERUM 7.7 mg/dL (8.5-10.1); CREATININE 1.5 mg/dL (0.6-1.3); MAGNESIUM 1.5 mg/dL (1.8-2.4); PHOSPHORUS 3.6 mg/dL (2.5-4.9); POTASSIUM 3.8 mmol/L (3.5-5.1)
[2021-03-16] MEDS: SPIRONOLACTONE 25 MG TABLET PO SCH (08:31)
[2021-03-16] MEDS: FUROSEMIDE 20 MG TABLET PO SCH ×2 (08:32→16:14)
[2021-03-16] MEDS: PROPRANOLOL HCL 10 MG TABLET PO SCH ×2 (08:32→21:17)
[2021-03-16] MEDS: THIAMINE HCL 100 MG TABLET PO SCH (08:32)
[2021-03-16 08:38] VITALS: BP 109/66
[2021-03-16] MEDS ORDERED: MAGNESIUM OXIDE 400 MG TABLET PO ONE (10:00)
[2021-03-16 16:08] VITALS: BP 111/67
[2021-03-16 20:00] VITALS: BP 108/58
[2021-03-17] MEDS: HYDROMORPHONE 1 MG/1 ML DISP.SYRIN IV PRN ×5 (03:16→23:26)
[2021-03-17] MEDS: BENZONATATE 100 MG CAPSULE PO SCH ×3 (05:31→20:41)
[2021-03-17 07:46] LABS: BASOPHILS # (AUTO) 0.1 K/uL (0.0-0.2); BASOPHILS % (AUTO) 0.7 % (0.0-2.0); EOSINOPHILS % (AUTO) 2.8 % (0.0-6.0); HEMATOCRIT 31 % (39-51); HEMOGLOBIN 10.3 g/dL (13.5-17.5); LYMPHOCYTES # (AUTO) 2.1 K/uL (0.8-4.8); LYMPHOCYTES % (AUTO) 14.4 % (20.0-44.0); MEAN CORPUSCULAR HGB CONC 33 g/dl (31.0-36.0); MEAN CORPUSCULAR VOLUME 97 fL (80-96); MONOCYTES # (AUTO) 1.7 K/uL (0.1-1.30); MONOCYTES % (AUTO) 11.7 % (2.0-12.0); NEUTROPHILS # (AUTO) 10.4 K/uL (1.8-8.9); NEUTROPHILS % (AUTO) 70.4 % (43.0-81.0); PLATELET COUNT (AUTO) 124 K/uL (150-450); WHITE BLOOD COUNT (AUTO) 14.8 K/uL (4.3-11.0)
[2021-03-17] MEDS: PANTOPRAZOLE 40 MG TABLET.DR PO SCH (07:53)
[2021-03-17 07:55] LABS: CALCIUM, SERUM 7.8 mg/dL (8.5-10.1); CREATININE 1.5 mg/dL (0.6-1.3); MAGNESIUM 1.6 mg/dL (1.8-2.4); POTASSIUM 3.8 mmol/L (3.5-5.1)
[2021-03-17 08:42] VITALS: BP 108/56
[2021-03-17] MEDS: PROPRANOLOL HCL 10 MG TABLET PO SCH ×2 (09:28→20:47)
[2021-03-17] MEDS: SPIRONOLACTONE 25 MG TABLET PO SCH (09:29)
[2021-03-17] MEDS: FUROSEMIDE 20 MG TABLET PO SCH ×2 (09:29→16:21)
[2021-03-17] MEDS: THIAMINE HCL 100 MG TABLET PO SCH (09:29)
[2021-03-17] MEDS ORDERED: MAGNESIUM OXIDE 400 MG TABLET PO ONE (11:00)
[2021-03-17 16:06] VITALS: BP 135/71
[2021-03-17] MEDS: Magnesium 1GM/D5W 100ML PREMIX 100 ML IV SCH ×2 (19:33→20:42)
[2021-03-18] MEDS: HYDROMORPHONE 1 MG/1 ML DISP.SYRIN IV PRN ×3 (03:21→20:32)
[2021-03-18 03:46] VITALS: BP 115/62
[2021-03-18] MEDS: BENZONATATE 100 MG CAPSULE PO SCH ×3 (05:02→22:08)
[2021-03-18 07:53] LABS: BASOPHILS # (AUTO) 0.1 K/uL (0.0-0.2); BASOPHILS % (AUTO) 0.8 % (0.0-2.0); EOSINOPHILS % (AUTO) 2.7 % (0.0-6.0); HEMATOCRIT 31 % (39-51); HEMOGLOBIN 10.3 g/dL (13.5-17.5); LYMPHOCYTES # (AUTO) 2.1 K/uL (0.8-4.8); LYMPHOCYTES % (AUTO) 14.7 % (20.0-44.0); MEAN CORPUSCULAR HGB CONC 34 g/dl (31.0-36.0); MEAN CORPUSCULAR VOLUME 96 fL (80-96); MONOCYTES # (AUTO) 1.8 K/uL (0.1-1.30); MONOCYTES % (AUTO) 12.2 % (2.0-12.0); NEUTROPHILS % (AUTO) 69.6 % (43.0-81.0); PLATELET COUNT (AUTO) 129 K/uL (150-450); RED BLOOD CELL COUNT(AUTO) 3.18 MIL/uL (4.5-6.0); WHITE BLOOD COUNT (AUTO) 14.3 K/uL (4.3-11.0)
[2021-03-18] MEDS: FUROSEMIDE 20 MG TABLET PO SCH ×2 (08:23→16:18)
[2021-03-18] MEDS: PANTOPRAZOLE 40 MG TABLET.DR PO SCH (08:23)
[2021-03-18] MEDS: THIAMINE HCL 100 MG TABLET PO SCH (08:23)
[2021-03-18] MEDS: PROPRANOLOL HCL 10 MG TABLET PO SCH ×2 (08:26→22:08)
[2021-03-18] MEDS: SPIRONOLACTONE 25 MG TABLET PO SCH (08:26)
[2021-03-18 08:53] VITALS: BP 94/50
[2021-03-18] MEDS: CHLORDIAZEPOXIDE HCL 25 MG CAPSULE PO PRN (09:00)
[2021-03-18 09:01] LABS: CALCIUM, SERUM 7.8 mg/dL (8.5-10.1); CREATININE 1.4 mg/dL (0.6-1.3); MAGNESIUM 1.8 mg/dL (1.8-2.4); PHOSPHORUS 3.7 mg/dL (2.5-4.9); POTASSIUM 3.5 mmol/L (3.5-5.1)
[2021-03-18 16:15] VITALS: BP 114/65
[2021-03-18 20:00] VITALS: BP 114/73
[2021-03-19 02:11] VITALS: BP 119/62
[2021-03-19] MEDS: HYDROMORPHONE 1 MG/1 ML DISP.SYRIN IV PRN ×5 (02:15→20:36)
[2021-03-19] MEDS: BENZONATATE 100 MG CAPSULE PO SCH ×3 (05:27→20:35)
[2021-03-19 07:08] LABS: BASOPHILS # (AUTO) 0.1 K/uL (0.0-0.2); BASOPHILS % (AUTO) 0.7 % (0.0-2.0); EOSINOPHILS % (AUTO) 2.5 % (0.0-6.0); HEMATOCRIT 27 % (39-51); HEMOGLOBIN 9.1 g/dL (13.5-17.5); LYMPHOCYTES # (AUTO) 2.2 K/uL (0.8-4.8); LYMPHOCYTES % (AUTO) 16.8 % (20.0-44.0); MEAN CORPUSCULAR HGB CONC 34 g/dl (31.0-36.0); MEAN CORPUSCULAR VOLUME 96 fL (80-96); MONOCYTES # (AUTO) 1.6 K/uL (0.1-1.30); NEUTROPHILS # (AUTO) 8.9 K/uL (1.8-8.9); PLATELET COUNT (AUTO) 101 K/uL (150-450); RED BLOOD CELL COUNT(AUTO) 2.81 MIL/uL (4.5-6.0); WHITE BLOOD COUNT (AUTO) 13.1 K/uL (4.3-11.0)
[2021-03-19 07:43] LABS: CALCIUM, SERUM 7.8 mg/dL (8.5-10.1); CREATININE 1.3 mg/dL (0.6-1.3); MAGNESIUM 1.6 mg/dL (1.8-2.4); PHOSPHORUS 3.3 mg/dL (2.5-4.9); POTASSIUM 3.3 mmol/L (3.5-5.1)
[2021-03-19 08:16] VITALS: BP 116/61
[2021-03-19] MEDS: FUROSEMIDE 20 MG TABLET PO SCH ×2 (08:34→16:50)
[2021-03-19] MEDS: THIAMINE HCL 100 MG TABLET PO SCH (08:34)
[2021-03-19] MEDS: SPIRONOLACTONE 25 MG TABLET PO SCH (08:35)
[2021-03-19] MEDS: PROPRANOLOL HCL 10 MG TABLET PO SCH ×2 (08:35→20:35)
[2021-03-19] MEDS: PANTOPRAZOLE 40 MG TABLET.DR PO SCH (08:35)
[2021-03-19] MEDS ORDERED: POTASSIUM CHLORIDE 20 MEQ TAB.PRT.SR PO SCH (10:30)
[2021-03-19] MEDS: Magnesium 1GM/D5W 100ML PREMIX 100 ML IV SCH ×2 (11:45→12:45)
[2021-03-19 15:26] LABS: BILIRUBIN,URINE NEGATIVE (NEGATIVE); COLOR,URINE YELLOW (YELLOW); LEUKOCYTE ESTERASE ,URINE NEGATIVE (NEGATIVE); NITRITE, URINE NEGATIVE (NEGATIVE); PROTEIN,URINE NEGATIVE (NEGATIVE); UGLUCOSE NEGATIVE (NEGATIVE); UROBILINOGEN,URINE 0.2 EU/dL (0.2)
[2021-03-19 16:40] VITALS: BP 118/72
[2021-03-19 20:00] VITALS: BP 114/67
[2021-03-20] MEDS: HYDROMORPHONE 1 MG/1 ML DISP.SYRIN IV PRN ×5 (01:08→21:55)
[2021-03-20] MEDS: BENZONATATE 100 MG CAPSULE PO SCH ×3 (05:12→21:54)
[2021-03-20 06:50] LABS: BASOPHILS # (AUTO) 0.1 K/uL (0.0-0.2); BASOPHILS % (AUTO) 1.1 % (0.0-2.0); EOSINOPHILS % (AUTO) 3.8 % (0.0-6.0); HEMATOCRIT 27 % (39-51); HEMOGLOBIN 9.3 g/dL (13.5-17.5); LYMPHOCYTES # (AUTO) 1.8 K/uL (0.8-4.8); LYMPHOCYTES % (AUTO) 16.1 % (20.0-44.0); MEAN CORPUSCULAR HGB CONC 34 g/dl (31.0-36.0); MEAN CORPUSCULAR VOLUME 97 fL (80-96); MONOCYTES # (AUTO) 1.3 K/uL (0.1-1.30); MONOCYTES % (AUTO) 12.2 % (2.0-12.0); NEUTROPHILS # (AUTO) 7.3 K/uL (1.8-8.9); NEUTROPHILS % (AUTO) 66.8 % (43.0-81.0); PLATELET COUNT (AUTO) 99 K/uL (150-450); RED BLOOD CELL COUNT(AUTO) 2.82 MIL/uL (4.5-6.0)
[2021-03-20 08:00] VITALS: BP 104/63
[2021-03-20] MEDS: FUROSEMIDE 20 MG TABLET PO SCH ×2 (08:18→16:04)
[2021-03-20] MEDS: PROPRANOLOL HCL 10 MG TABLET PO SCH ×2 (08:18→21:55)
[2021-03-20] MEDS: SPIRONOLACTONE 25 MG TABLET PO SCH (08:18)
[2021-03-20] MEDS: THIAMINE HCL 100 MG TABLET PO SCH (08:18)
[2021-03-20] MEDS: PANTOPRAZOLE 40 MG TABLET.DR PO SCH (08:18)
[2021-03-20 11:24] LABS: CALCIUM, SERUM 7.6 mg/dL (8.5-10.1); CREATININE 1.3 mg/dL (0.6-1.3); MAGNESIUM 1.7 mg/dL (1.8-2.4); PHOSPHORUS 3.8 mg/dL (2.5-4.9); POTASSIUM 3.5 mmol/L (3.5-5.1)
[2021-03-20] MEDS: HYDROCODONE/APAP 5/325MG TABLET PO PRN (15:41)
[2021-03-20 16:00] VITALS: BP 107/66
[2021-03-20] MEDS: CHLORDIAZEPOXIDE HCL 25 MG CAPSULE PO PRN (19:41)
[2021-03-20 20:54] VITALS: BP 112/70
[2021-03-21] MEDS: BENZONATATE 100 MG CAPSULE PO SCH ×2 (05:13→13:06)
[2021-03-21 08:00] VITALS: BP 110/63
[2021-03-21] MEDS: THIAMINE HCL 100 MG TABLET PO SCH (08:13)
[2021-03-21] MEDS: PANTOPRAZOLE 40 MG TABLET.DR PO SCH (08:14)
[2021-03-21] MEDS: SPIRONOLACTONE 25 MG TABLET PO SCH (08:14)
[2021-03-21] MEDS: FUROSEMIDE 20 MG TABLET PO SCH (08:14)
[2021-03-21 08:15] VITALS: BP 110/63
[2021-03-21] MEDS: PROPRANOLOL HCL 10 MG TABLET PO SCH (08:15)
[2021-03-21] MEDS: HYDROMORPHONE 1 MG/1 ML DISP.SYRIN IV PRN (08:24)
[2021-03-21] MEDS ORDERED: SPIR25TA6 PO (09:12)
[2021-03-21] MEDS ORDERED: PROP10TA68 PO (09:12)
[2021-03-21] MEDS ORDERED: TRAM50TA2 PO (09:12)
[2021-03-21] MEDS ORDERED: FURO20TA4 PO (09:12)
[2021-03-21] MEDS: HYDROCODONE/APAP 5/325MG TABLET PO PRN (13:10)
== END 2021-03-21 13:10 | disposition home health service (06) | DRG 853 ==
LOC: ER 08:10 → TRANSITION 11:37 → TELE 17:33 → MED 02-26 11:37 → ICU 03-06 13:11 → TELE 03-08 15:58 → MED 03-09 11:56
PROVIDERS: ADMIT Nurse Practitioner Acute Care; ATTEND Internal Medicine
PROC: 0W9B3ZZ Drainage of Left Pleural Cavity, Percutaneous Approach (ICD-10-PCS; principal; 2021-02-25)
PROC: 30233K1 Transfusion of Nonautologous Frozen Plasma into Peripheral Vein, Percutaneous Approach (ICD-10-PCS; 2021-03-01)
PROC: 0BNG4ZZ Release Left Upper Lung Lobe, Percutaneous Endoscopic Approach (ICD-10-PCS; 2021-03-06)
PROC: 0W9B40Z Drainage of Left Pleural Cavity with Drainage Device, Percutaneous Endoscopic Approach (ICD-10-PCS; 2021-03-06)
PROC: 05H933Z Insertion of Infusion Device into Right Brachial Vein, Percutaneous Approach (ICD-10-PCS; 2021-03-07)
PROC: 30233M1 Transfusion of Nonautologous Plasma Cryoprecipitate into Peripheral Vein, Percutaneous Approach (ICD-10-PCS; 2021-03-08)
PROC: 0QB33ZX Excision of Left Pelvic Bone, Percutaneous Approach, Diagnostic (ICD-10-PCS; 2021-03-13)
DX: A41.9 Sepsis, unspecified organism (principal); J96.01 Acute respiratory failure with hypoxia; J18.9 Pneumonia, unspecified organism; J86.9 Pyothorax without fistula; N17.0 Acute kidney failure with tubular necrosis; E87.1 Hypo-osmolality and hyponatremia; J98.11 Atelectasis; J90 Pleural effusion, not elsewhere classified; I31.3 Pericardial effusion (noninflammatory); E87.2 Acidosis; D68.59 Other primary thrombophilia; D68.9 Coagulation defect, unspecified; J94.2 Hemothorax; J94.8 Other specified pleural conditions; K76.6 Portal hypertension; K70.31 Alcoholic cirrhosis of liver with ascites; K70.11 Alcoholic hepatitis with ascites; K82.8 Other specified diseases of gallbladder; Z20.822 Contact with and (suspected) exposure to COVID-19; E78.5 Hyperlipidemia, unspecified; F41.9 Anxiety disorder, unspecified; E66.9 Obesity, unspecified; Z68.28 Body mass index [BMI] 28.0-28.9, adult; F32.A Depression, unspecified; F10.10 Alcohol abuse, uncomplicated; Y90.9 Presence of alcohol in blood, level not specified; D72.821 Monocytosis (symptomatic); E86.1 Hypovolemia; E88.09 Other disorders of plasma-protein metabolism, not elsewhere classified; R59.0 Localized enlarged lymph nodes; K31.89 Other diseases of stomach and duodenum; K29.80 Duodenitis without bleeding; F12.90 Cannabis use, unspecified, uncomplicated; Z68.30 Body mass index [BMI] 30.0-30.9, adult; Z87.891 Personal history of nicotine dependence; D69.6 Thrombocytopenia, unspecified; E83.42 Hypomagnesemia; D64.9 Anemia, unspecified; E87.5 Hyperkalemia; E87.6 Hypokalemia
CPT/HCPCS: 36410; 36415; 71045-TC; 71250-TC; 71260-TC; 76700-TC; 80048-TC; 80053-TC; 80076-TC; 81001; 82140-TC; 82378; 82728-TC; 82784; 82962-TC; 83540-TC; 83605-TC; 83615-TC; 83690-TC; 83735-TC; 83880; 84100-TC; 84155; 84165; 84439-TC; 84443-TC; 84484-TC; 85025-TC; 85378-TC; 85385-TC; 85396; 85610-TC; 85730-TC; 86225; 86235; 86334; 86431-TC; 86480; 86706; 86803; 86850-TC; 87040-TC; 87070-TC; 87075-TC; 87081-TC; 87086-TC; 87102-TC; 87116; 87206; 87340; 87806; 88108-TC; 88305-TC; 88312-TC; 89051-TC; 93307-TC; 93970-TC; A4217; A6253; A6403; G0378; J0330; J0690; J0692; J1100; J1170; J1200; J2250; J2270; J2405; J3010; J3370; J3430; J3475; J3490; J7030; J7050; J7060; L3908; P9012; P9017; Q9967